=== PATIENT | male | born 1995 | race Hispanic/Latino ===

== ENCOUNTER 2023-11-02 04:49 | Emergency (ER) | payer BC, MEDICAID ==
[~2023-11-02] VITALS: Ht 182.9 cm; Wt 108.9 kg
[2023-11-02] MEDS ORDERED: AMOX500C2 PO (05:11)
[2023-11-02 05:17] VITALS: BP 148/75; PULSE 86; RESP 18; O2SAT 99
[2023-11-02] MEDS: CIPROFLOXACIN HCL 0.2%/HYDROCORT 1% 10 ML OTIC SUSP ONE (05:25)
[2023-11-02] MEDS: CIPROFLOXACIN HCL 0.2%/HYDROCORT 1% 10 ML OTIC SUSP OTIC ONE (05:26)
== END 2023-11-02 05:40 | disposition home or self-care (01) ==
LOC: EDH 04:49
DX: H60.91 Unspecified otitis externa, right ear (principal)